=== PATIENT | female | born 1990 | race Caucasian/White ===

== ENCOUNTER 2023-09-29 10:13 | Emergency (ER) | payer SELFPAY ==
[~2023-09-29] VITALS: Ht 175.3 cm; Wt 77.1 kg
[2023-09-29 10:18] VITALS: BP_SYST 157; PULSE 80; RESP 16; TEMP 97.4; O2SAT 99
[2023-09-29 11:11] LABS: BILIRUBIN,URINE NEGATIVE (NEGATIVE); BLOOD, URINE 2+ (NEGATIVE); CLARITY/URINE CLEAR (CLEAR); COLOR,URINE YELLOW (YELLOW); GLUCOSE,URINE NEGATIVE (NEGATIVE); KETONES,URINE TRACE (NEGATIVE); LEUKOCYTE ESTERASE ,URINE NEGATIVE (NEGATIVE); NITRITE, URINE NEGATIVE (NEGATIVE); PH,URINE 5.5 (5.0-8.0); PROTEIN URINE NEGATIVE (NEGATIVE)
[2023-09-29] MEDS: NACL 0.9% 1,000 ML IV ONE (11:22)
[2023-09-29] MEDS: ONDANSETRON HCL 4 MG/2 ML VIAL IVP ONE (11:23)
[2023-09-29] MEDS: MORPHINE 4 MG INJ. 4 MG/ML VIAL IVP ONE (11:24)
[2023-09-29 11:30] LABS: BASOPHILS % (AUTO) 0.4 % (0.0-2.0); EOSINOPHILS % (AUTO) 0.3 % (0.0-4.0); HEMATOCRIT 37.2 % (36-48); LYMPHOCYTES # (AUTO) 3.7 K/uL (1.0-5.5); LYMPHOCYTES % (AUTO) 33.4 % (20.5-51.5); MEAN CORPUSCULAR HEMOGLOBIN 27 pg (27-31); MEAN CORPUSCULAR HGB CONC 32 % (32-36); MEAN CORPUSCULAR VOLUME 84 fL (79.0-98.0); MONOCYTES # (AUTO) 0.8 K/uL (0.0-1.0); MONOCYTES % (AUTO) 7.2 % (1.7-9.3); NEUTROPHILS # (AUTO) 6.5 K/uL (1.8-7.7); NEUTROPHILS % (AUTO) 58.7 % (40.0-70.0); PLATELET COUNT (AUTO) 319 K/uL (130-430); RED BLOOD CELL COUNT(AUTO) 4.42 MIL/uL (4.2-6.2)
[2023-09-29 11:44] LABS: ALBUMIN 3.6 g/dL (3.4-4.8); BILIRUBIN,DIRECT 0.1 mg/dL (0.0-0.3); CALCIUM 9.1 mg/dL (8.4-11.0); CREATININE 0.6 mg/dL (0.55-1.30); POTASSIUM 3.7 mmol/L (3.5-5.1); TOTAL BILIRUBIN 0.4 mg/dL (0.0-1.0); TOTAL PROTEIN, SERUM 7.2 g/dL (6.4-8.3)
[2023-09-29 11:48] LABS: WBC,URINE 0-3 /HPF (0-3)
[2023-09-29 11:49] LABS: BACTERIA,URINE RARE /HPF (None Seen); MUCUS,URINE 1+ /LPF (None Seen)
[2023-09-29] MEDS ORDERED: IBUP-1969 PO (12:36)
[2023-09-29] MEDS ORDERED: ONDA-8 TL (12:36)
[2023-09-29 13:03] VITALS: BP_SYST 112; PULSE 59; RESP 17; TEMP 98.9; O2SAT 100
== END 2023-09-29 13:00 | disposition home or self-care (01) ==
LOC: SED 10:13
DX: K52.89 Other specified noninfective gastroenteritis and colitis (principal); R10.30 Lower abdominal pain, unspecified; R11.2 Nausea with vomiting, unspecified; R19.7 Diarrhea, unspecified; Z98.890 Other specified postprocedural states
CPT/HCPCS: 99285; 74176; 96374; 96361; 96375; 80076; 80048; 81001; 83690; 85025; 36415; 81025; J2405; J2270; J7030; 81000; 81015